=== PATIENT | male | born 1980 | race Two or more races ===

== ENCOUNTER 2020-04-18 16:25 | Inpatient (IN) | payer OTHER ==
[2020-04-18 17:03] VITALS: BMI 20.3
[2020-04-18] MEDS ORDERED: BISMUTH SUBSALICYLATE 524 MG/30 ML UD PO PRN (20:10)
[2020-04-18] MEDS ORDERED: NALOXONE HCL 0.4 MG/ML VIAL IM PRN (20:10)
[2020-04-18] MEDS ORDERED: MAGNESIUM CITRATE 300 ML BOTTLE PO PRN (20:10)
[2020-04-18] MEDS ORDERED: MENTHOL/PHENOL 1 EACH UD MM PRN (20:10)
[2020-04-18] MEDS ORDERED: IBUPROFEN 400 MG TABLET (FP) PO PRN (20:10)
[2020-04-18] MEDS ORDERED: MAG HYDROX/AL HYDROX/SIMETH 30 ML UNIT-DOSE CUP PO PRN (20:10)
[2020-04-18] MEDS ORDERED: MAGNESIUM HYDROX 2400MG/30ML ORAL SUSPENSION 30 ML CUP PO PRN (20:10)
[2020-04-18] MEDS ORDERED: P-EPHED 60MG/TRIPROLIDI 2.5MG TABLET PO PRN (20:10)
[2020-04-18] MEDS ORDERED: METHOCARBAMOL 500 MG TABLET PO PRN (20:10)
[2020-04-18] MEDS ORDERED: METHADONE HCL 10 MG TABLET (FOR DETOX USE ONLY) PO ONE (20:10)
[2020-04-18] MEDS ORDERED: NICOTINE POLACRILEX 2 MG GUM BUC PRN (20:10)
[2020-04-18] MEDS ORDERED: ONDANSETRON *ODT* 4 MG TABLET SL PRN (20:10)
[2020-04-18] MEDS ORDERED: cloNIDine HCL 0.1 MG TABLET PO PRN (20:10)
[2020-04-18] MEDS ORDERED: guaiFENesin 200 MG/10 ML 10 ML UNIT-DOSE CUPS PO PRN (20:10)
[2020-04-18] MEDS ORDERED: ACETAMINOPHEN 325 MG TABLET (FP) PO PRN ×2 (20:10)
[2020-04-18] MEDS ORDERED: DICYCLOMINE HCL 10 MG CAPSULE PO PRN (20:10)
[2020-04-18] MEDS ORDERED: MELATONIN 5 MG TABLETS PO SCH (22:00)
[2020-04-18] MEDS ORDERED: THIAMINE HCL 100 MG TABLET (FP) PO SCH (22:00)
[2020-04-18] MEDS: CEPHALEXIN MONOHYDRATE 500 MG CAPSULE (UD) PO SCH (23:00)
[2020-04-19] MEDS: CEPHALEXIN MONOHYDRATE 500 MG CAPSULE (UD) PO SCH (06:35)
[2020-04-19 09:28] VITALS: BP 129/79; PULSE 73; TEMP 97
[2020-04-19] MEDS ORDERED: METHADONE HCL 10 MG TABLET (FOR DETOX USE ONLY) ONE (09:28)
[2020-04-19] MEDS ORDERED: METHADONE HCL 5 MG TABLET (FOR DETOX USE ONLY) ONE (09:28)
[2020-04-19] MEDS ORDERED: METHADONE (DETOX) 20 MG, METHADONE (DETOX) 5 MG PO ONE (10:00)
[2020-04-19] MEDS ORDERED: BACITRACIN 0.9 GM PACKET TP SCH (10:00)
[2020-04-19] MEDS ORDERED: NICOTINE 21 MG/24 HOURS TOPICAL PATCH TD SCH (10:00)
[2020-04-19] MEDS ORDERED: PRENATAL VITAMINS W/ FOLIC ACID TABLET (FP) PO SCH (10:00)
[2020-04-19 13:11] LABS: HEMATOCRIT 35.4 % (35.4-49); HEMOGLOBIN 12.1 GM/dL (11.7-16.9); MCH 31.2 pg (25.7-33.7); MCHC 34.2 g/dl (32.0-35.9); MEAN CELL VOLUME 91.3 fl (80-96); MEAN PLT VOLUME 8.3 fl (7.5-11.1); PLATELET COUNT 205 K/MM3 (134-434); RBC 3.88 M/mm3 (4.00-5.60); RDW 16.4 % (11.9-15.9); WHITE BLOOD COUNT 6.6 K/mm3 (4.0-10.0)
[2020-04-19 13:16] LABS: POTASSIUM 3.7 mmol/L (3.5-5.1)
[2020-04-19 13:31] LABS: ALBUMIN 2.5 g/dl (3.4-5.0); BLOOD UREA NITROGEN 17.2 mg/dL (7-18)
[2020-04-19 13:34] LABS: CALCIUM 7.9 mg/dL (8.5-10.1)
[2020-04-19 13:35] LABS: CREATININE 0.9 mg/dL (0.55-1.3)
[2020-04-19 13:36] LABS: BILIRUBIN,TOTAL 0.6 mg/dL (0.2-1); TOT PROT 6.3 g/dl (6.4-8.2)
[2020-04-20] MEDS ORDERED: METHADONE HCL 10 MG TABLET (FOR DETOX USE ONLY) PO ONE (10:00)
[2020-04-21] MEDS ORDERED: METHADONE (DETOX) 10 MG, METHADONE (DETOX) 5 MG PO ONE (10:00)
[2020-04-22] MEDS ORDERED: METHADONE HCL 10 MG TABLET (FOR DETOX USE ONLY) PO ONE (10:00)
[2020-04-23] MEDS ORDERED: METHADONE HCL 5 MG TABLET (FOR DETOX USE ONLY) PO ONE (06:00)
== END 2020-04-19 10:19 | disposition left against medical advice (07) | DRG 770 ==
LOC: YASAS 16:25 → Y6N 19:28
PROVIDERS: ADMIT Allergy & Immunology; ATTEND Allergy & Immunology
PROC: HZ2ZZZZ Detoxification Services for Substance Abuse Treatment (ICD-10-PCS; principal; 2020-04-18)
DX: F11.23 Opioid dependence with withdrawal (principal); F14.20 Cocaine dependence, uncomplicated; F12.20 Cannabis dependence, uncomplicated; F19.20 Other psychoactive substance dependence, uncomplicated; F17.210 Nicotine dependence, cigarettes, uncomplicated; F42.4 Excoriation (skin-picking) disorder; B18.2 Chronic viral hepatitis C; L98.9 Disorder of the skin and subcutaneous tissue, unspecified; L02.212 Cutaneous abscess of back [any part, except buttock and flank]; Z87.440 Personal history of urinary (tract) infections; Z56.0 Unemployment, unspecified; Z59.0 Homelessness
CPT/HCPCS: 36415; 80053; 85027; 86780; 93005; 93010; C9803; U0003